=== PATIENT | female | born 1955 ===

== ENCOUNTER 2018-01-19 12:12 | Emergency (ER) | payer OTHER ==
[2018-01-19 12:35] VITALS: BP 150/89
--- NOTE | 2018-01-19 12:44 | UC ---
Skin Complaint HPI - HPI Summary HPI Summary: Pt presents with with c/o itchy red, vesicular rash on upper extremities and face. RAsh began after gardening 10 days ago and now has spread to bilateral arms and face. Pt states that she is more itchy at night. denies tat anyone at home has similar rash. - History of Current Complaint Chief Complaint: UCSkin Time Seen by Provider: 01/19/18 12:24 Stated Complaint: SKIN CONCERN Hx Obtained From: Patient ?: No Onset/Duration: Gradual Onset, Lasting Days, Still Present, Worse Since - onset Skin Exposure Onset/Duration: Days Ago Timing: Constant Onset Severity: Mild Current Severity: Mild Pain Intensity: 0 Location: Face, Other - upper arms, forearms. Left worse than right Character: Pruritus, Redness Aggravating Factor(s): Touch, Other - extreme temperatures Alleviating Factor(s): Unknown Associated Signs & Symptoms: Positive: Rash Related History: Possible Reaction to: Environmental Exposure - possible poison laure. - Allergy/Home Medications Allergies/Adverse Reactions: Allergies Allergy/AdvReac Type Severity Reaction Status Date / Time No Known Allergies Allergy Verified 01/19/18 12:21 Home Medications: Home Medications High Bp DAILY 01/19/18 [History] High Cholesterol Medication DAILY 01/19/18 [History] Stomach Medication DAILY 01/19/18 [History] Review of Systems Constitutional: Negative Skin: Rash Eyes: Negative ENT: Negative Respiratory: Negative Cardiovascular: Negative Gastrointestinal: Negative Genitourinary: Negative Motor: Negative Neurovascular: Negative Musculoskeletal: Negative Neurological: Negative Psychological: Negative Is Patient Immunocompromised?: No All Other Systems Reviewed And Are Negative: Yes PMH/Surg Hx/FS Hx/Imm Hx Previously Healthy: Yes GI/ History: Gastroesophageal Reflux - Surgical History Surgical History: Yes Surgery Procedure, Year, and Place: 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 Manager Meeting services were then discontinued at request of pt. Vital Signs: Initial Vital Signs Temp 98.8 F 01/19/18 12:30 Pulse 76 01/19/18 12:30 Resp 15 01/19/18 12:30 BP 150/89 01/19/18 12:30 Pulse Ox 100 01/19/18 12:30 Vital Signs Reviewed: Yes Eye Exam: Normal ENT: Positive: Hearing grossly normal Dental Exam: Normal Neck exam: Normal Respiratory: Positive: No respiratory distress Musculoskeletal Exam: Normal Neurological Exam: Normal Psychological Exam: Normal Skin: Positive: rashes - erythematous, scattered small irregular, mild erythema , vesicular, "roundish" rash on bilateral upper extremities and face. Denies pain. Course/Dx - Differential Diagnoses - Skin Complaint Differential Diagnoses: Poison Laure, Varicella Zoster - Diagnoses Provider Diagnoses: contact dermatitis. poison laure Discharge - Sign-Out/Discharge Documenting (check all that apply): Patient Departure - Discharge Plan Condition: Stable Disposition: HOME Prescriptions: Cetirizine* [ZyrTEC 10 MG TAB*] 10 mg PO DAILY #4 tab predniSONE [Prednisone 20 MG TAB] 20 mg PO DAILY #4 tablet Patient Education Materials: Poison Laure (ED) Referrals: [facility] [Outside] - Billing Disposition and Condition Condition: STABLE Disposition: Home Attestation Statement User Type: Provider - I was available for consult. This patient was seen by the ARMANDO. The patient was not presented to, seen by, or examined by me. -Tyrone
== END 2018-01-19 13:01 | disposition home or self-care (01) ==
LOC: UCCORT 12:12
DX: T63.791A Toxic effect of contact with other venomous plant, accidental (unintentional), initial encounter (principal); L25.5 Unspecified contact dermatitis due to plants, except food; Y92.9 Unspecified place or not applicable
CPT/HCPCS: 99202; G0463